=== PATIENT | male | born 1945 | race Caucasian/White ===

== ENCOUNTER 2017-06-11 14:59 | Inpatient (IN) | payer MEDICARE, OTHER ==
[~2017-06-11] VITALS: Ht 175.3 cm; Wt 104.3 kg
[2017-06-11 22:25] LABS: HEMOGLOBIN 15.6 gm/dl (14.0-17.5); RED BLOOD COUNT 4.92 M/UL (4.20-5.50); WHITE BLOOD COUNT 17.4 K/UL (4.5-11.0)
[2017-06-12] MEDS ORDERED: PROAIR HFA8.5 GM INH (04:28)
[2017-06-12] MEDS ORDERED: CHLORTHALIDONE25 MG PO (04:29)
[2017-06-12] MEDS ORDERED: CALCIUM500 MG PO (04:30)
[2017-06-12] MEDS ORDERED: TENORMIN 50 MG50 MG PO (04:30)
[2017-06-12] MEDS ORDERED: MULTIVITAMINS1 EAC1 PO (04:31)
[2017-06-12] MEDS ORDERED: CRANBERRY PO (04:31)
[2017-06-12] MEDS ORDERED: ADVAIR 100-501 EACH INH (04:34)
[2017-06-12 04:56] LABS: HEMOGLOBIN 15.6 gm/dl (14.0-17.5); RED BLOOD COUNT 4.98 M/UL (4.20-5.50); WHITE BLOOD COUNT 17.2 K/UL (4.5-11.0)
[2017-06-13 12:42] LABS: HEMOGLOBIN 14.4 gm/dl (14.0-17.5); RED BLOOD COUNT 4.57 M/UL (4.20-5.50); WHITE BLOOD COUNT 20.8 K/UL (4.5-11.0)
[2017-06-13 12:49] LABS: BUN/CREATININE RATIO 34 (0-10)
[2017-06-13] MEDS ORDERED: MEDROL DOSEPAK 24 MG PO (16:09)
[2017-06-13] MEDS ORDERED: MUCINEX600 MG PO (16:10)
[2017-06-13] MEDS ORDERED: CEFUROXIME500 MG PO (16:11)
[2017-06-13] MEDS ORDERED: VENTOLIN/PROVE0.5 ML INH (16:13)
[2017-06-13] MEDS ORDERED: IPRAT-ALBUT 0.5-3 ML INH (16:14)
== END 2017-06-13 17:47 | disposition home or self-care (01) | DRG 190 ==
LOC: ER1 14:59 → ZEROF 22:52 → M/S 22:52
PROVIDERS: Physician Assistant; ADMIT Internal Medicine
PROC: 3E0234Z Introduction of Serum, Toxoid and Vaccine into Muscle, Percutaneous Approach (ICD-10-PCS; principal; 2017-06-12)
DX: J44.0 Chronic obstructive pulmonary disease with (acute) lower respiratory infection (principal); J18.9 Pneumonia, unspecified organism; E87.2 Acidosis; J44.1 Chronic obstructive pulmonary disease with (acute) exacerbation; I10 Essential (primary) hypertension; Z85.46 Personal history of malignant neoplasm of prostate; Z85.828 Personal history of other malignant neoplasm of skin; Z90.49 Acquired absence of other specified parts of digestive tract; Z87.891 Personal history of nicotine dependence; D72.829 Elevated white blood cell count, unspecified; Z23 Encounter for immunization; Z79.899 Other long term (current) drug therapy
CPT/HCPCS: ECHO; 36415; 36600; 71020; 80048; 80053; 82550; 82553; 82803; 83880; 84484; 85025; 85027; 87040; 93005; 93306; 94640; 94664; G0008; J0456; J0696; J1650; J2920; J2930; J7030; Q2039